=== PATIENT | female | born 1990 ===

== ENCOUNTER 2019-04-10 17:44 | Inpatient (IN) | payer OTHER ==
[2019-04-10] MEDS ORDERED: PITOCin/NS 20 UNIT/1000ML DRIP 20,000 MILLIUNITS/1,000 ML BAG IV ONE (19:07)
[2019-04-10] MEDS ORDERED: LACTATED RINGERS 1,000 ML ONE (19:07)
--- NOTE | 2019-04-10 19:23 | History and Physical Report ---
History of Present Illness Date of examination: 04/10/19 Date of admission: 04/10/19 Chief complaint: Active labor History of present illness: 28 yo, @ 39.1 weeks gestation, initiated care with [facility] at 29 wks. She was a transfer from [place] with no PNC. Her has been complicated by insufficient PNC and [place] non-immune status. She presents to [facility] with reports of regular painful ctxs for the past 2 hrs. She reports good FM. She denies any VB or LOF. Labs: O+, antibody negative; Hgb-13.1; Pap normal; rubella non-immune; VDRL negative; HBsAg negative; HIV negative GC/Chlamydia negative; 1 hr gtt - 117; GBS negative. Past History Past Medical History: other (Anemia, with hx of blood transfusion) Past Surgical History: no surgical history Family/Genetic History: none Social history: single, lives with family, full code. denies: smoking, alcohol abuse, prescription drug abuse, IV drug use - Obstetrical History Expected Date of Delivery: 04/16/19 Actual Gestation: 39 Week(s) 1 Day(s) : 7 Para: 4 Hx # Term Pregnancies: 4 Number of Pregnancies: 1 Spontaneous Abortions: 1 Induced : 0 Number of Living Children: 4 #1 Gender: Male year: 2,009 Method of Delivery: Vaginal Gestational age at delivery: 40 Complications: none #2 Infant Gender: Female year: 2,010 Method of Delivery: Vaginal Gestational age at delivery: 40 Complications: none #3 Infant Gender: Female year: 2,015 Method of Delivery: Vaginal Gestational age at delivery: 40 Complications: none #4 year: 2,016 Gestational age at delivery: 12 (D & C) #5 Infant Gender: Female year: 2,017 Method of Delivery: Vaginal Gestational age at delivery: 40 Complications: none #6 Infant Gender: Male year: 2,018 Method of Delivery: Vaginal Gestational age at delivery: 20 (IUFD) Complications: pelvic infection Review of Systems All systems: negative Genitourinary: contractions (regular painful) - Vital Signs Vital signs: Vital Signs Temp Pulse Resp BP 98.9 F 71 16 101/60 04/10/19 18:33 04/10/19 18:33 04/10/19 18:33 04/10/19 18:33 Temp Pulse Resp BP Pulse Ox 98.9 F 71 16 101/60 04/10/19 18:33 04/10/19 18:34 04/10/19 18:33 04/10/19 18:34 - Physical Exam Breasts: Positive: deferred Cardiovascular: Regular rate Lungs: Positive: Normal air movement Abdomen: Positive: other (gravid) Genitourinary (Female): Positive: normal external genitalia, normal perenium Uterus: Positive: enlarged (S=D) Extremities: Positive: normal Deep Tendon Reflex Grade: Normal +2 - Obstetrical FHR: category 1 Uterine Contraction Monitor Mode: External Cervical Dilatation: 6.5 Cervical Effacement Percentage: 90 station: -1 Uterine Contraction Frequency (min): 2 Uterine Contraction Pattern: Regular Uterine Tone Measurement Phase: Resting Uterine Contraction Intensity: Moderate Results All other labs normal. Assessment and Plan - Patient Problems (1) 39 weeks gestation of Current Visit: Yes Status: Acute (2) Active labor at term Current Visit: Yes Status: Acute Plan to address problem: Admit to L & D AROM @ 1908, clear fluids, tolerated well Expectant management Pain medications as desired Anticipate (3) Insufficient care in third trimester Current Visit: Yes Status: Acute
[2019-04-10] MEDS ORDERED: SUBLIMAZE IV PRN (19:37)
[2019-04-10] MEDS ORDERED: MINERAL OIL PO PRN (19:37)
[2019-04-10] MEDS ORDERED: BRETHINE SUB-Q PRN (19:37)
[2019-04-10] MEDS ORDERED: STADOL IV PRN (19:37)
[2019-04-10] MEDS ORDERED: ZOFRAN IV PRN ×2 (19:37→21:33)
[2019-04-10] MEDS ORDERED: XYLOCAINE 2% INFILTRATI ONE (19:37)
[2019-04-10 19:57] LABS: Hematocrit 40.9 % (30.3-42.9); Hemoglobin 13.7 gm/dl (10.1-14.3); Mean Corpuscular HGB Conc 34 % (30-34); Mean Corpuscular Volume 90 fl (79-97); Platelet Count 239 K/mm3 (140-440); Red Blood Count 4.57 M/mm3 (3.65-5.03); Red Cell Distribution Width 14.3 % (13.2-15.2)
[2019-04-10] MEDS ORDERED: PITOCin/NS 20 UNIT/1000ML DRIP 20 UNITS/1,000 ML BAG IV SCH (20:00)
[2019-04-10] MEDS ORDERED: LACTATED RINGERS 1,000 ML IV SCH (20:00)
[2019-04-10] MEDS ORDERED: TUCKS PAD TP PRN (21:33)
[2019-04-10] MEDS ORDERED: PHENERGAN PO PRN (21:33)
[2019-04-10] MEDS ORDERED: DULCOLAX PR PRN (21:33)
[2019-04-10] MEDS ORDERED: LANSINOH TP PRN (21:33)
[2019-04-10] MEDS ORDERED: PERCOCET 5/325 PO PRN (21:33)
[2019-04-10] MEDS ORDERED: MILK OF MAGNESIA PO PRN (21:33)
[2019-04-10] MEDS ORDERED: BENADRYL PO PRN (21:33)
--- NOTE | 2019-04-10 21:42 | Procedure Note ---
OB Delivery Note - Delivery Date of Delivery: 04/10/19 (2057) Surgeon: MICHAEL BOWLES (DINORAHM) Estimated blood loss: 300cc - Vaginal Delivery presentation: vertex Delivery position: OA (ISAÍAS) Intrapartum events: precipitous labor- <3hr Delivery induction: none Delivery augmentation: rupture of membranes Delivery monitor: external FHT, external uterine Route of delivery: Delivery placenta: spontaneous (2102) Delivery cord: 3 umbilical vessels Episiotomy: none Delivery laceration: 1st degree Delivery repair: vicryl (3.0 on SH) Anesthesia: none Delivery comments: of viable, crying male infant, placed directly to maternal abdomen. Cord double clamped and cut by friend after cessation of pulsation. Cord blood obtained per hospital policy. Placenta spontaneously delivered, [place], disposed per hospital policy. Uterus firm @ U-1. 1st degree laceration, repaired with 3.0 vicryl on SH. Mother and baby safe, stable and left in care of RN. - A at 1 minute: 8 at 5 minutes: 9 Infant Gender: Male (Weight: 3229 gms (7lbs 2 ozs) 21 inches)
[2019-04-10] MEDS ORDERED: SODIUM CHLORIDE FLUSH SYRINGE 10 ML IV PRN (22:00)
[2019-04-10] MEDS: IBUPROFEN PO SCH (22:02)
[2019-04-11] MEDS: IBUPROFEN PO SCH ×3 (03:27→17:59)
[2019-04-11] MEDS ORDERED: FEOSOL PO SCH (10:00)
--- NOTE | 2019-04-11 10:24 | Progress Note ---
Assessment and Plan A: PP Day #1 Stable P: Follow Routine Orders D/C Home today per patient request RTO in 6 Weeks Subjective - Subjective Date of service: 04/11/19 Patient reports: appetite normal, voiding normally, pain well controlled, fla tus, bowel movement, ambulating normally [place]: doing well Objective - Vital Signs Latest vital signs: Vital Signs Temp Pulse Resp BP BP Pulse Ox 04/11/19 08:03 98.5 F 69 18 93/59 04/11/19 05:43 98.2 F 76 18 101/61 98 04/10/19 23:00 98.2 F 60 18 113/72 98 04/10/19 21:58 67 115/73 04/10/19 21:43 73 107/63 04/10/19 21:34 78 108/63 04/10/19 21:13 67 113/62 04/10/19 19:15 98.9 F 18 04/10/19 18:34 71 101/60 04/10/19 18:33 98.9 F 71 16 101/60 Intake and Output 04/10/19 04/11/19 04/11/19 22:59 06:59 14:59 Intake Total 360 480 Balance 360 480 Intake: Oral 360 480 Other: Total, Intake Amount 120 480 # Voids Void 1 Weight 61.235 kg Estimated Blood Loss 300 - Exam Breasts: Present: normal Cardiovascular: Present: Regular rate Lungs: Present: Clear to auscultation, Normal air movement Abdomen: Present: normal appearance, soft, normal bowel sounds Uterus: Present: normal, firm, fundal height below umbilicus Extremities: Present: normal
--- NOTE | 2019-04-11 10:25 | Discharge Summary ---
Providers - Providers Date of Admission: 04/10/19 19:37 Date of discharge: 04/11/19 Attending physician: JOHN SPARKS MD Primary care physician: JOHN SPARKS MD Hospitalization Reason for admission: active labor Delivery: Episiotomy: none Laceration: 1st degree Other procedures: none complications: none Discharge diagnosis: IUP at term delivered [place] baby: male Condition at discharge: Good Disposition: DC-01 TO HOME OR SELFCARE Plan - Provider Discharge Summary Activity: routine, no sex for 6 weeks, no heavy lifting 4 weeks, no strenuous exercise Diet: routine Instructions: routine Additional instructions: [] Smoking cessation referral if applicable(refer to patient education folder for contact #) [] Refer to [facility] Booklet Call your doctor immediately for: * Fever > 100.5 * Heavy vaginal bleeding ( >1 pad per hour) * Severe persistent headache * Shortness of breath * Reddened, hot, painful area to leg or breast * Drainage or odor from incision. * Keep incision clean and dry at all times and follow doctor's instructions regarding bathing/showering - Follow up plan Follow up: JOHN SPARKS MD [Primary Care Provider] - 6 Weeks
[2019-04-11 11:59] LABS: Hematocrit 35.2 % (30.3-42.9); Hemoglobin 12.1 gm/dl (10.1-14.3)
[2019-04-11] MEDS ORDERED: DERMOPLAST TP PRN (13:18)
[2019-04-12] MEDS: IBUPROFEN PO SCH ×2 (00:33→06:46)
[2019-04-12] MEDS ORDERED: BOOSTRIX IM ONE (06:00)
[2019-04-12] MEDS ORDERED: M-M-R II VACCINE SUB-Q ONE (07:05)
[2019-04-12] MEDS ORDERED: AFLURIA QUAD 2019-2020 (3YR UP) IM ONE (12:00)
[2019-04-12 12:40] VITALS: BP 98/63
== END 2019-04-12 16:00 | disposition home or self-care (01) | DRG 807 ==
LOC: TRG 17:44 → LD 18:48 → TRG 19:37 → OB 23:16
PROVIDERS: ADMIT Obstetrics & Gynecology; ATTEND Obstetrics & Gynecology
PROC: 10E0XZZ Delivery of Products of Conception, External Approach (ICD-10-PCS; principal; 2019-04-10)
PROC: 10907ZC Drainage of Amniotic Fluid, Therapeutic from Products of Conception, Via Natural or Artificial Opening (ICD-10-PCS; 2019-04-10)
PROC: 0HQ9XZZ Repair Perineum Skin, External Approach (ICD-10-PCS; 2019-04-10)
PROC: 3E0234Z Introduction of Serum, Toxoid and Vaccine into Muscle, Percutaneous Approach (ICD-10-PCS; 2019-04-12)
DX: O62.3 Precipitate labor (principal); Z37.0 Single live birth; O70.0 First degree perineal laceration during delivery; Z3A.39 39 weeks gestation of pregnancy; Z23 Encounter for immunization
CPT/HCPCS: 36415; 85014; 85018; 85027; 86592; 86850; 86900; 86901; 90471; 90686; 90707; 90715; G0378; A6250; J2590; J7120

== ENCOUNTER 2020-11-11 06:01 | Inpatient (IN) | payer MEDICAID, OTHER ==
[2020-11-11] MEDS ORDERED: BETAMET ACET/BETAMET NA PH 6 MG/ML INJ 5 ML MDV IM ONE (07:02)
[2020-11-11] MEDS ORDERED: TERBUTALINE 1 MG/1 ML INJ SUB-Q PRN (07:17)
[2020-11-11] MEDS ORDERED: ePHEDrine SULFATE 50 MG/1 ML INJ IV PRN (07:17)
[2020-11-11] MEDS ORDERED: NalbUPHINE 10 MG/1 ML INJ IV PRN (07:17)
[2020-11-11] MEDS ORDERED: miSOPROStol 200 MCG TAB PR PRN (07:17)
[2020-11-11] MEDS ORDERED: PROMETHAZINE 25 MG TAB PO PRN ×2 (07:17→14:00)
[2020-11-11] MEDS ORDERED: LIDOCAINE (2%) 20 MG/1 ML VIAL 20 ML MDV INFILTRATI NR (07:17)
[2020-11-11] MEDS ORDERED: LACTATED RINGERS 1,000 ML IV SCH (07:30)
[2020-11-11] MEDS ORDERED: OXYTOCIN DRIP 30 UNITS/500 ML BAG IV SCH (08:00)
[2020-11-11] MEDS ORDERED: fentaNYL 100 MCG/2 ML INJ IV PRN (08:00)
[2020-11-11 08:15] LABS: Hematocrit 38.3 % (30.3-42.9); Hemoglobin 12.9 gm/dl (10.1-14.3); Mean Corpuscular HGB Conc 34 % (30-34); Mean Corpuscular Volume 83 fl (79-97); Platelet Count 265 K/mm3 (140-440); Red Blood Count 4.63 M/mm3 (3.65-5.03); Red Cell Distribution Width 17.5 % (13.2-15.2)
--- NOTE | 2020-11-11 08:20 | History and Physical Report ---
History of Present Illness Date of examination: 11/11/20 Chief complaint: leakage of fluid at 5am today History of present illness: at 37.5wks by LMP c/w 11wk u/sound from records. care from [facility]. Pt c/o LOF at 5am this morning. Pt also feels ctx since 1day ago, denies vag bleed or headache. Pt admits to movement. Past History Past Medical History: no pertinent history Past Surgical History: no surgical history Social history: no significant social history - Obstetrical History Expected Date of Delivery: 11/27/20 Actual Gestation: 37 Week(s) 5 Day(s) : 7 Spontaneous Abortions: 2 (IUFD at 20wks and SAB at 12wks) Number of Living Children: 5 Medications and Allergies Allergies Allergy/AdvReac Type Severity Reaction Status Date / Time No Known Allergies Allergy Unverified 04/10/19 19:15 Home Medications Medication Instructions Recorded Confirmed Last Taken Type Vit-Fe Fumar-FA [ 1 tab PO DAILY 04/10/19 04/10/19 1 Day Ago History Vitamin] ~04/09/19 Review of Systems All systems: negative (LOF and ctx) - Vital Signs Vital signs: Vital Signs Pulse BP 76 110/71 11/11/20 06:35 11/11/20 06:35 Temp Pulse Resp BP Pulse Ox 76 110/71 11/11/20 06:35 11/11/20 06:35 - Physical Exam Breasts: Positive: deferred Cardiovascular: Regular rate Lungs: Positive: Normal air movement Abdomen: Positive: soft Uterus: Positive: enlarged (non-tender) Extremities: Positive: normal - Obstetrical FHR: category 1 Uterine Contraction Monitor Mode: External Cervical Dilatation: 5.5 (per triage; No gross LOF seen) Cervical Effacement Percentage: 70 station: -2 Results All other labs normal. Assessment and Plan Grandmultiparous in labor, GBS neg. 1. Admit to labor and delivery 2. Pt declines epidural. May have IV pain med as desired 3. ROM plus sent to confirm leakage of fluid Discussed plan of care using job change crew member. Expect . All questions encouraged and answered
[2020-11-11] MEDS ORDERED: METHYLERGONOVINE MALEATE 0.2 MG/ML VIAL IM ONE ×2 (13:46→14:00)
[2020-11-11] MEDS ORDERED: diphenhydrAMINE 25 MG CAP PO PRN (14:00)
[2020-11-11] MEDS ORDERED: LANOLIN/ZINC/DIMETHICONE (LANSINOH) 7 GM TP PRN (14:00)
[2020-11-11] MEDS ORDERED: ONDANSETRON 4 MG/2 ML INJ IV PRN (14:00)
[2020-11-11] MEDS ORDERED: PROMETHAZINE 25 MG RECT SUPP PR PRN (14:00)
[2020-11-11] MEDS ORDERED: WITCH HAZEL/ GLYCERIN PAD TP PRN (14:00)
--- NOTE | 2020-11-11 14:01 | Procedure Note ---
OB Delivery Note - Delivery Date of Delivery: 11/11/20 Surgeon: KIARA ELIAS Estimated blood loss: 500cc - Vaginal Delivery presentation: vertex Delivery position: OA Intrapartum events: hemorrhage, shoulder dystocia Delivery induction: none Delivery augmentation: rupture of membranes, pitocin Delivery monitor: external FHT, external uterine Route of delivery: Delivery placenta: spontaneous Delivery cord: nuchal cord, 3 umbilical vessels Episiotomy: none Delivery laceration: none Anesthesia: none Delivery comments: Called to for delivery. SVE 10/100/0 and pt was pushing. of a live stunned male infant. Tight nuchal cord was reduced over infant's head after delivery of head. Unable to deliver 's shoulders after normal axial traction was applied. A shoulder dystocia was called. Pt was placed in McRobert's position and suprapubic pressure was applied. was delivered after 3 min use of Hartley screw maneuver and delivery of posterior arm. Much room was noted in pelvis. Pt had poor maternal pushing efforts secondary to pain. Cord was clamped x 2 and cut. was given to awaiting NICU nurse for an asses. 8/9. FF@ U2 with fundal massage and IV Pitocin. Homeostasis was maintained with use of Cytotec 800 mcg MD and Methergine 0.2 mg IM due to trickling of blood and grand multiparity. An exploration of tears revealed none. EBL 500cc. FW 4020Gms. Mom and baby was left in stable condition with L&D nurse. - Infant A at 1 minute: 8 at 5 minutes: 9 (FW 4020 Gms) Gender: Male
[2020-11-11] MEDS: IBUPROFEN 600 MG TAB PO SCH ×2 (14:03→21:15)
[2020-11-11] MEDS ORDERED: MINERAL OIL 30 ML ORAL LIQD PO PRN (22:00)
[2020-11-11] MEDS ORDERED: MAGNESIUM HYDROXIDE (MOM) ORAL LIQD UDC PO PRN (22:00)
[2020-11-12 00:51] LABS: Hematocrit 33.8 % (30.3-42.9); Hemoglobin 11.4 gm/dl (10.1-14.3)
[2020-11-12] MEDS: IBUPROFEN 600 MG TAB PO SCH ×3 (04:29→16:32)
[2020-11-12] MEDS ORDERED: medroxyPROGESTERone ACETATE 150 MG/ML SYRINGE IM NR (11:58)
--- NOTE | 2020-11-12 12:04 | Progress Note ---
Assessment and Plan A: PP Day #1 Vaginal edema P: Follow Routine Orders D/C Mensah Encourage increased ambulation Patient Request D/C Home today If adequate voiding after Mensah removed, October D/C home today Depo Provera 150mg IM x 1 dose prior to discharge RTO in 6 Weeks Subjective - Subjective Date of service: 11/12/20 Principal diagnosis: IUP@ 37.5 wks Patient reports: appetite normal, voiding normally (Mensah in place due to labial edema; adquate urine output), pain well controlled, flatus, ambulating normally : doing well, bottle feeding Objective - Vital Signs Latest vital signs: Vital Signs Temp Pulse Resp BP BP Pulse Ox 11/12/20 07:56 97.8 F 66 14 91/53 98 11/12/20 05:29 18 11/12/20 04:29 18 11/12/20 01:06 98.8 F 55 L 20 96/53 99 11/11/20 22:15 18 11/11/20 21:15 18 11/11/20 18:22 99.1 F 55 L 18 112/66 98 11/11/20 16:25 98.4 F 60 17 115/65 99 11/11/20 15:45 57 L 130/71 11/11/20 15:30 58 L 128/72 11/11/20 15:15 58 L 128/73 11/11/20 15:00 57 L 120/65 11/11/20 14:45 59 L 123/69 11/11/20 14:30 55 L 120/62 11/11/20 14:15 59 L 105/58 11/11/20 14:00 64 109/71 11/11/20 13:45 105/67 11/11/20 13:35 58 L 107/64 11/11/20 13:30 62 106/64 Intake and Output 11/11/20 11/12/20 11/12/20 22:59 06:59 14:59 Intake Total 120 Output Total 375 300 Balance -375 -180 Intake: Oral 120 Output: Urine 375 300 Indwelling Catheter 375 300 Other: Total, Intake Amount 120 Total, Output Amount 375 300 - Exam Breasts: Present: normal Cardiovascular: Present: Regular rate Lungs: Present: Clear to auscultation, Normal air movement Abdomen: Present: normal appearance, soft, normal bowel sounds Uterus: Present: normal, firm, fundal height below umbilicus Extremities: Present: normal
--- NOTE | 2020-11-12 12:05 | Discharge Summary ---
Providers - Providers Date of Admission: 11/11/20 06:02 Date of discharge: 11/13/20 Attending physician: RADHA COLLAZO Primary care physician: RADHA COLLAZO Hospitalization Reason for admission: active labor, rupture of membranes Delivery: Episiotomy: none Laceration: none Other procedures: none complications: other (labial edema) Discharge diagnosis: IUP at term delivered baby: male Condition at discharge: Good Disposition: DC-01 TO HOME OR SELFCARE Plan - Provider Discharge Summary Activity: routine, no sex for 6 weeks, no heavy lifting 4 weeks, no strenuous exercise Diet: routine Instructions: routine Additional instructions: [] Smoking cessation referral if applicable(refer to patient education folder for contact #) [] Refer to [facility] Booklet Call your doctor immediately for: * Fever > 100.5 * Heavy vaginal bleeding ( >1 pad per hour) * Severe persistent headache * Shortness of breath * Reddened, hot, painful area to leg or breast * Drainage or odor from incision. * Keep incision clean and dry at all times and follow doctor's instructions regarding bathing/showering - Follow up plan Follow up: RADHA COLLAZO MD [Primary Care Provider] - 6 Weeks
[2020-11-12 21:48] VITALS: BP 106/70
== END 2020-11-12 22:10 | disposition home or self-care (01) | DRG 806 ==
LOC: TRG 06:01 → APU 06:02 → LD 06:02 → APU 06:14 → TRG 08:28 → OB 16:42
PROVIDERS: ADMIT Obstetrics & Gynecology; ATTEND Obstetrics & Gynecology
PROC: 10E0XZZ Delivery of Products of Conception, External Approach (ICD-10-PCS; principal; 2020-11-11)
DX: O66.0 Obstructed labor due to shoulder dystocia (principal); O72.1 Other immediate postpartum hemorrhage; Z37.0 Single live birth; O69.1XX0 Labor and delivery complicated by cord around neck, with compression, not applicable or unspecified; Z20.822 Contact with and (suspected) exposure to COVID-19; Z3A.37 37 weeks gestation of pregnancy
CPT/HCPCS: 36415; 84112; 85014; 85018; 85027; 86850; 86900; 86901; G0378; J2210; J2590; U0003

== ENCOUNTER 2021-10-26 14:55 | Outpatient (CLI) | payer MEDICAID, OTHER ==
[2021-10-26 15:37] VITALS: BP 135/61
[2021-10-26] MEDS ORDERED: LACTATED RINGERS 500 ML IV ONE (16:07)
== END 2021-10-26 16:18 | disposition home or self-care (01) ==
LOC: TRG 14:55 → APU 14:57 → TRG 16:18
PROVIDERS: ATTEND Obstetrics & Gynecology
DX: Z34.93 Encounter for supervision of normal pregnancy, unspecified, third trimester (principal); Z3A.28 28 weeks gestation of pregnancy
CPT/HCPCS: 59025

== ENCOUNTER 2021-10-26 16:34 | Emergency (ER) | payer SELFPAY ==
[2021-10-26] MEDS ORDERED: predniSONE 20 MG TAB PO ONE (17:41)
[2021-10-26] MEDS ORDERED: FAMOTIDINE 20 MG TAB PO ONE (17:41)
--- NOTE | 2021-10-26 17:45 | Emergency Department Report ---
ED Rash HPI - HPI Stated Complaint: RASH ON LEG Time Seen by Provider: 10/26/21 17:40 Duration: 1 Day Location: Other Suspected Cause: Medication Rash Symptoms: Yes Itching, No Facial Swelling, No Tongue/Oral Swelling, No Breathing Difficulties, No Choking Sensation, No Wheezing/Dyspnea, No Peeling, No Blistering, No Fever, No Lightheaded, No Malaise, No Myalgias Severity: mild Other History: Patient is a 32-year-old female that comes to the emergency room after being cleared by women's health, due to her . She initially came to the ER this morning with complaints of a rash and intermittent abdominal pain. She speaks minimal Nepalese. She is cleared by PROGRAM PROJECT MANAGER. She now comes to the ER with a rash. She recently started Macrobid. She took some [id number] Benadryl. But she continues to complain of itching. She has a generalized urticarial rash. No one in the home has a rash. ABCs are intact. She is taking p.o. She is ambulatory without shortness of breath. No hypotension, tachycardia or hypoxia. ED Review of Systems ROS: Stated complaint: RASH ON LEG Other details as noted in HPI Comment: All other systems reviewed and negative ED Past Medical Hx - Past Medical History Previous Medical History?: No Hx Hypertension: No Hx Diabetes: No Hx Deep Vein Thrombosis: No Hx Renal Disease: No Hx Sickle Cell Disease: No Hx Seizures: No Hx Asthma: No Hx HIV: No - Surgical History Past Surgical History?: No - Family History Family history: no significant - Social History Smoking Status: Never Smoker - Medications Home Medications: Home Medications Medication Instructions Recorded Confirmed Last Taken Type Vit-Fe Fumar-FA [ 1 tab PO DAILY 04/10/19 11/11/20 11/10/20 History Vitamin] methylPREDNISolone [Medrol 4MG 4 mg PO FS #1 tab.ds.pk 10/26/21 Unknown Rx DOSEPAK (21 tabs)] Rash Exam - Exam General: Vital signs noted. No distress. Alert and acting appropriately. HEENT: No Periorbital Edema, No Conjuctival Injection, No Chemosis, No Perioral Edema, No Tongue Edema, No Uvular Edema, No Compromised Airway, No Drooling Lungs: Yes Good Air Exchange (Normal Breath Sounds), No Wheezes, No Ronchi, No Stridor, No Cough, No Labored Respirations, No Retractions, No Use of Accessory Muscles, No Other Abnormal Lung Sounds Heart: Yes Regular, No Murmur Skin: Yes Urticarial Rash Other: Positive: Abdomen Normal, Neurologic Normal, Musculoskeletal Normal ED Medical Decision Making - Medical Decision Making Patient is under the care of her PROGRAM PROJECT MANAGER for her and UTI. I had started her on Macrobid. She comes in today with a urticarial rash. [facility] and cleared from a DRILL RUNNER/OB perspective: Was sent here for her rash. Patient speaks minimal Nepalese. Her significant other also speaks minimal Nepalese. She denies vaginal bleeding or discharge. Denies abdominal pain. She did not tell the PROGRAM PROJECT MANAGER that was seen today about her Macrobid. I told her to stop the Macrobid. I have given her prednisone and Pepcid here in the ER. She is already taking Benadryl. ABCs are intact. Vital signs are stable. Patient is in no acute distress. Patient taking p.o. Patient being discharged home with discharge plan of care. She understands she needs to follow-up with her PCP and her PROGRAM PROJECT MANAGER in 48 hours. Vital signs normal as documented manually by the RN - Differential Diagnosis Rash Critical care attestation.: If time is entered above; I have spent that time in minutes in the direct care of this critically ill patient, excluding procedure time. ED Disposition Clinical Impression: Allergic reaction Qualifiers: Encounter type: initial encounter Qualified Code(s): T78.40XA - Allergy, unspecified, initial encounter Disposition: 01 HOME / SELF CARE / HOMELESS Is pt being admited?: No Does the pt Need Aspirin: No Condition: Stable Instructions: Allergies, Adult, [id number]-nr-Ulgr Additional Instructions: Continue to take Benadryl for itching Do not take the Macrobid Follow-up with OB and PCP in 48 hours for recheck I have given you referral below Make sure your PROGRAM PROJECT MANAGER rechecks her urine given your recent UTI Medication as ordered today You should report Macrobid as an allergy from now 1 Prescriptions: methylPREDNISolone [Medrol 4MG DOSEPAK (21 tabs)] 4 mg PO FS #1 tab.ds.pk Referrals: RAMESH PILLAI MD [Staff Physician] - 3-5 Days Time of Disposition: 17:44 Print Language: JAPANESE
== END 2021-10-26 18:20 | disposition home or self-care (01) ==
LOC: ED 16:34
DX: O99.719 Diseases of the skin and subcutaneous tissue complicating pregnancy, unspecified trimester (principal); Z3A.00 Weeks of gestation of pregnancy not specified; T78.40XA Allergy, unspecified, initial encounter
CPT/HCPCS: 99282

== ENCOUNTER 2022-01-23 10:40 | Inpatient (IN) | payer SELFPAY ==
[2022-01-23] MEDS ORDERED: fentaNYL 100 MCG/2 ML INJ IV PRN (12:36)
[2022-01-23] MEDS ORDERED: LIDOCAINE (2%) 20 MG/1 ML VIAL 20 ML MDV INFILTRATI ONE (12:36)
[2022-01-23] MEDS ORDERED: miSOPROStol 200 MCG TAB PR PRN (12:36)
[2022-01-23] MEDS ORDERED: ePHEDrine SULFATE 50 MG/1 ML INJ IV PRN (12:36)
[2022-01-23] MEDS ORDERED: LOPERAMIDE 2 MG CAP PO PRN (12:36)
[2022-01-23] MEDS ORDERED: TERBUTALINE 1 MG/1 ML INJ SUB-Q PRN (12:36)
[2022-01-23] MEDS ORDERED: MINERAL OIL 30 ML ORAL LIQD PO PRN (12:36)
[2022-01-23] MEDS ORDERED: OXYTOCIN 10 UNIT/1 ML INJ IM PRN (12:36)
[2022-01-23] MEDS ORDERED: BUTORPHANOL 2 MG/1 ML INJ IV PRN ×2 (12:36)
[2022-01-23] MEDS ORDERED: ACETAMINOPHEN 325 MG TAB PO PRN (12:36)
[2022-01-23] MEDS ORDERED: CARBOPROST TROMETHAMINE 250 MCG/1 ML INJ IM PRN (12:36)
[2022-01-23] MEDS ORDERED: METHYLERGONOVINE MALEATE 0.2 MG/ML VIAL IM PRN (12:36)
[2022-01-23] MEDS ORDERED: OXYTOCIN DRIP 30 UNITS/500 ML BAG IV SCH ×2 (13:00)
[2022-01-23 15:32] LABS: Hematocrit 34.1 % (30.3-42.9); Hemoglobin 10.6 gm/dl (10.1-14.3); Mean Corpuscular HGB Conc 31 % (30-34); Mean Corpuscular Volume 72 fl (79-97); Platelet Count 270 K/mm3 (140-440); Red Blood Count 4.72 M/mm3 (3.65-5.03); Red Cell Distribution Width 16.4 % (13.2-15.2)
--- NOTE | 2022-01-23 20:17 | History and Physical Report ---
History of Present Illness Date of examination: 01/23/22 Date of admission: 01/23/22 12:49 Chief complaint: ctx History of present illness: at 37+wks by LMP c/w U/S. at [facility] covered by [employer] at this hospital. Pt last seen in the first week of December 2021 per clinic provider who sent the records. Pt c/o ctx, denies LOF or vag bleed, c/o headache and feeling hungry, admits to movement. labs with Rh positive, neg screen, HIV, RPR and HepBsAg all neg and rubella immune. No record of GBS because pt did not return for this test. Past History Past Medical History: other (From records pt had previa in this preg that resolved in November but no u/s report; also previous IUFD at 20wks with sepsis in 07/2021) Past Surgical History: D&C (in 2015) Social history: no significant social history - Obstetrical History Expected Date of Delivery: 02/08/22 Actual Gestation: 37 Week(s) 5 Day(s) : 9 Hx # Term Pregnancies: 6 Number of Pregnancies: 1 (IUFD at 20wks with sepsis) Spontaneous Abortions: 1 Number of Living Children: 6 Medications and Allergies Allergies Allergy/AdvReac Type Severity Reaction Status Date / Time nitrofurantoin Allergy Itching Verified 01/23/22 19:18 [From Macrobid] Home Medications Medication Instructions Recorded Confirmed Last Taken Type Vit-Fe Fumar-FA [ 1 tab PO DAILY 04/10/19 11/11/20 11/10/20 History Vitamin] methylPREDNISolone [Medrol 4MG 4 mg PO FS #1 tab.ds.pk 10/26/21 Unknown Rx DOSEPAK (21 tabs)] Active Meds: Active Medications Acetaminophen (Acetaminophen 325 Mg Tab) 650 mg PO Q4H PRN PRN Reason: Pain, Mild (1-3) Last Admin: 01/23/22 19:37 Dose: 650 mg Butorphanol Tartrate (Butorphanol 2 Mg/1 Ml Inj) 1 mg IV Q2H PRN PRN Reason: Pain, Moderate(4-6) LABOR PAIN Butorphanol Tartrate (Butorphanol 2 Mg/1 Ml Inj) 2 mg IV Q2H PRN PRN Reason: Pain , Severe (7-10) Carboprost Tromethamine (Carboprost Tromethamine 250 Mcg/1 Ml Inj) 250 mcg IM ONCE PRN PRN Reason: Uterine Bleeding Ephedrine Sulfate (Ephedrine Sulfate 50 Mg/1 Ml Inj) 10 mg IV Q2M PRN PRN Reason: Hypotension Fentanyl (Fentanyl 100 Mcg/2 Ml Inj) 100 mcg IV Q2H PRN PRN Reason: Pain,Severe (7-10) LABOR PAIN Oxytocin/Sodium Chloride (Pitocin/Ns 30 Unit/500ml) 30 units in 500 mls @ 2 mls/hr IV TITR JEAN; Protocol Lactated Ringer's (Lactated Ringers) 1,000 mls @ 125 mls/hr IV DIRECT JEAN Oxytocin/Sodium Chloride (Pitocin/Ns 30 Unit/500ml) 30 units in 500 mls @ 40 mls/hr IV TITR JEAN; Protocol Loperamide HCl (Loperamide 2 Mg Cap) 2 mg PO ONCE PRN PRN Reason: give with Hemabate Methylergonovine Maleate (Methylergonovine Maleate 0.2 Mg/Ml Vial) 0.2 mg IM ONCE PRN PRN Reason: Uterine Bleeding Mineral Oil (Mineral Oil 30 Ml Oral Liqd) 30 ml PO QHS PRN PRN Reason: Constipation Misoprostol (Misoprostol 200 Mcg Tab) 800 mcg AK ONCE PRN PRN Reason: Uterine Bleeding Oxytocin (Oxytocin 10 Unit/1 Ml Inj) 10 unit IM ONCE PRN PRN Reason: Uterine Bleeding Terbutaline Sulfate (Terbutaline 1 Mg/1 Ml Inj) 0.25 mg SUB-Q ONCE PRN PRN Reason: Hyperstimulation/Hypertonicity Review of Systems All systems: negative (vag spotting and ctx) - Vital Signs Vital signs: Vital Signs Pulse Pulse Ox 78 99 01/23/22 11:07 01/23/22 11:07 Temp Pulse Resp BP Pulse Ox 99.3 F 95 H 18 124/66 98 01/23/22 19:42 01/23/22 20:06 01/23/22 19:42 01/23/22 19:44 01/23/22 20:06 - Physical Exam Breasts: Positive: deferred Cardiovascular: Regular rate Lungs: Positive: Normal air movement Abdomen: Positive: soft Genitourinary (Female): Positive: normal external genitalia Vagina: Positive: normal moisture Uterus: Positive: enlarged (non-tender gravid) - Obstetrical FHR: category 1 Uterine Contraction Monitor Mode: External Cervical Dilatation: 4 (per triage nurse) Uterine Contraction Pattern: Irregular Uterine Contraction Intensity: Mild Results Result Diagrams: 01/23/22 15:17 Abnormal lab results 01/23/22 Range/Units 15:17 MCV 72 L (79-97) fl MCH 22 L (28-32) pg RDW 16.4 H (13.2-15.2) % All other labs normal. Assessment and Plan Term IUP at 37.5wk, unknown GBS with history of IUFD with sepsis earlier this year 07/2021 currently with normal wbc and reassuring FHR on monitor. Records a lso with placenta previa this preg that has resolved but no actual copy of the u/s record and pt with chief complaint of vag bleed today 1. Admit to labor and delivery 2. Confirm that placenta previa has resolved 3. May have IV pain med or epidural when desired. 4. If no previa, will proceed with vaginal delivery 5. Will need 2nd access since this is pt's 9th preg and high risk of PPH All questions encouraged and answered
[2022-01-23] MEDS: LACTATED RINGERS 1,000 ML IV SCH (21:11)
[2022-01-23] MEDS ORDERED: SODIUM CHLORIDE 0.9% 500 ML 500 ML IV ONE (23:33)
[2022-01-23] MEDS ORDERED: FAMOTIDINE 20 MG/2 ML INJ IV ONE (23:36)
[2022-01-23] MEDS ORDERED: METOCLOPRAMIDE 10 MG/2 ML INJ ONE (23:36)
[2022-01-23] MEDS ORDERED: BICITRA ORAL LIQD 30ML ONE (23:36)
--- NOTE | 2022-01-23 23:39 | Ultrasound Report ---
ULTRASOUND OBSTETRIC LIMITED INDICATION / CLINICAL INFORMATION: rule out placenta previa. COMPARISON: None available. FINDINGS: A single live intrauterine is seen in cephalic presentation with a heart rate of 135 bpm. C omplete placenta previa is noted. No other significant abnormality. IMPRESSION: Complete placenta previa without other significant sonographic abnormalities of the pelvis. Signer Name: Samy Mckeon MD Signed: 01/23/2022 11:35 PM Workstation Name: [id number]
--- NOTE | 2022-01-23 23:56 | Event Note ---
Date: 01/23/22 pt had repeat u/s here on the floor at [facility] that states complete placenta previa with less than 4cm of fluid. Consents obtained for pt to have primary section for complete previa, risks of hemorrhage discussed with possible hysterectomy and pt signed consents. Pt and partner present state they have been having sex 2-3times per week and today was the first time pt had vag bleed that was bright red blood and large amount. Pt currently with dark mucus moderate amount. Will proceed to have primary c/section, 4units PRBC ordered and same available and cell saver also contacted with asst available. Outboard Motorboat Rigger used to explain everything to pt. All questions encouraged and answered.
[2022-01-24] MEDS: LACTATED RINGERS 1,000 ML IV SCH ×2 (00:09→06:43)
[2022-01-24] MEDS ORDERED: METOCLOPRAMIDE 10 MG/2 ML INJ IV ONE (00:11)
[2022-01-24] MEDS ORDERED: FAMOTIDINE 20 MG/2 ML INJ IV ONE (00:11)
[2022-01-24] MEDS ORDERED: BICITRA ORAL LIQD 30ML PO ONE (00:11)
[2022-01-24] MEDS ORDERED: LACTATED RINGERS 1,000 ML IV SCH (00:15)
[2022-01-24] MEDS ORDERED: SODIUM CHLORIDE 0.9% 100 ML ONE (00:38)
[2022-01-24] MEDS ORDERED: ePHEDrine SULFATE 50 MG/1 ML INJ ONE (00:38)
[2022-01-24] MEDS ORDERED: PHENYLEPHRINE/NS 1,000 MCG/10 ML SYRINGE (OR USE) IV ONE ×2 (00:38→01:52)
[2022-01-24] MEDS ORDERED: BUPIVACAINE/PF (0.25%) 2.5 MG/ML 30 ML VIAL INFILTRATI ONE (00:38)
[2022-01-24] MEDS ORDERED: ONDANSETRON 4 MG/2 ML INJ ONE (00:38)
[2022-01-24] MEDS ORDERED: SODIUM CHLORIDE 0.9% 1000 ML 1,000 ML ONE (00:58)
[2022-01-24] MEDS ORDERED: SODIUM CHLORIDE 0.9% IRR 1,500 ML BOTTLE IR ONE (01:00)
[2022-01-24] MEDS ORDERED: WATER FOR IRRIG STERILE 1,500 ML BOTTLE IR ONE (01:00)
[2022-01-24] MEDS ORDERED: OXYTOCIN DRIP 30 UNITS/500 ML BAG IV SCH (01:00)
[2022-01-24] MEDS ORDERED: ceFAZolin/Water 2 GM/20 ML 2 GM/20 ML SYRINGE IV NR (01:00)
[2022-01-24] MEDS ORDERED: NALOXONE 0.4 MG/1 ML INJ IV PRN ×2 (03:03→04:29)
[2022-01-24] MEDS ORDERED: PROMETHAZINE 25 MG TAB PO PRN (03:03)
[2022-01-24] MEDS ORDERED: PROMETHAZINE 25 MG RECT SUPP PR PRN (03:03)
[2022-01-24] MEDS ORDERED: ONDANSETRON 4 MG/2 ML INJ IV PRN ×2 (03:03→04:29)
[2022-01-24] MEDS ORDERED: MORPHINE 4 MG/1 ML INJ IV PRN (03:03)
[2022-01-24] MEDS ORDERED: HYDROmorphone 1 MG/1 ML INJ IV PRN ×2 (03:03)
--- NOTE | 2022-01-24 03:06 | Anesthesia Consultation ---
Anesthesia Consult and Med Hx Date of service: 01/24/22 - Airway Anesthetic Teeth Evaluation: Good ROM Head & Neck: Adequate Mental/Hyoid Distance: Adequate Mallampati Class: Class II Intubation Access Assessment: Probably Good - Pulmonary Exam CTA: Yes - Cardiac Exam Cardiac Exam: RRR - Pre-Operative Health Status ASA Pre-Surgery Classification: ASA2 Proposed Anesthetic Plan: Spinal Nerve Block: Momo Tap - Pulmonary Hx Smoking: No Hx Asthma: No Hx Respiratory Symptoms: No SOB: No COPD: No Home Oxygen Therapy: No Hx Pneumonia: No Hx Sleep Apnea: No - Cardiovascular System Hx Hypertension: No Hx Coronary Artery Disease: No Hx Heart Attack/AMI: No Hx Angina: No Hx Percutaneous Transluminal Coronary Angioplasty (PTCA): No Hx Cardia Arrhythmia: No Hx Pacemaker: No Hx Internal Defibrillator: No Hx Valvular Heart Disease: No Hx Heart Murmur: No Hx Peripheral Vascular Disease: No - Central Nervous System Hx Neuromuscular Disorder: No Hx Seizures: No CVA: No Hx Back Pain: No Hx Psychiatric Problems: No - Gastrointestinal Hx Ulcer: No Hx Gastroesophageal Reflux Disease: No - Endocrine Hx Renal Disease: No Hx End Stage Renal Disease: No Hx Cirrhosis: No Hx Liver Disease: No Hx Insulin Dependent Diabetes: No Hx Non-Insulin Dependent Diabetes: No Hx Thyroid Disease: No Hx Hypothyroidism: No Hx Hyperthyroidism: No - Hematic Hx Anemia: No Hx Sickle Cell Disease: No - Other Systems Hx Alcohol Use: No Hx Substance Use: No Hx Cancer: No Hx Obesity: No
--- NOTE | 2022-01-24 03:07 | Progress Note ---
Spinal Anesthesia Block - Spinal Anesthesia Block Start Time: 00:28 Stop Time: 00:34 Performed by:: ZACHARIAH ROMERO Procedure: The patient was placed in a sitting position on the OR table and monitors applied. A timeout was performed immediately prior to the start of the procedure. The patient was Prepped and draped in a sterile fashion and the skin was localized with 3 mL 1% lidocaine at L[4]-L[5] interspace. An introducer was placed into the back between L4-L5 and a 25g spinal needle was advanced into the intrathecal space until clear, free flowing CSF was observed. 1.8cc of 0.75% hyperbaric bupivacaine + 0.5mcg Precedex was injected into the intrathecal space and the spinal needle was removed. The patient tolerated the procedure well and there were no immediate complications noted.
--- NOTE | 2022-01-24 03:07 | Anesthesia Day of Surgery ---
Anesthesia Day of Surgery - Day of Surgery Patient Examined: Yes Patient H&P Reviewed: Yes Patient is NPO: Yes Beta Blockers: No Cardiac Clearance: No Pulmonary Clearance: No Ziggy's Test: N/A
--- NOTE | 2022-01-24 03:08 | Progress Note ---
Regional Anesthesia Block - Regional Anesthesia Block Start Time: :44 Stop Time: :50 Performed By:: ZACHARIAH ROMERO Procedure: During the pre-op interview the patient agreed to and signed a consent for a TAP block for post surgical pain management. After her C/S was completed a time out was performed prior to the start of the procedure. The Trans Abdominal Plane was identified bilaterally via ultrasound. The skin was prepped bilaterally with chlorhexidine and a 22g stimuplex needle was advanced to the area between the internal oblique muscle and the trans abdominal plane. Marcaine 0.25% 30mlwas injected under ultrasound guidance on the left and right side. Negative aspiration every 5mL, There was no change in the patients heart rate or rhythm and the patient tolerated the procedure well. No apparent complications were observed.
--- NOTE | 2022-01-24 03:20 | Procedure Note ---
OB Delivery Note - Delivery Date of Delivery: 01/24/22 Surgeon: ALEXANDRA COLLAZO Estimated blood loss: other (725cc per QBL) - Section Preop diagnosis: other (complete previa, vaginal bleeding, term IUP a 37.4wks) Postop diagnosis: same (and partial abruption with moderate size clot anteriorly) section procedure: primary low transverse Disposition: floor Complications: none Narrative: Date: 01/24/22 Surgeon: Alexandra Collazo MD Preop Dx: IUP at 37.4wks, complete previa, active vaginal bleeding with moderate amount dark color blood Postop Dx: same and partial abruption Procedure : Primary Low Transverse Section Anesthesia: Spinal Intake: 1500cc Output: 250cc EBL: 725cc per QBL After the risks, benefits and alternatives of procedure discussed, patient signed consents and was taken to the operating room. Pt was given spinal anesthesia. After same was adequate, patient was prepped and draped in the usual sterile fashion. Mensah catheter in place and draining clear urine. Pt was given prophylactic antibiotic per protocol and time out was done Pfannenstiel skin incision was made and taken sharply to the fascia and the incision extended using electrocautery. Superior edge of the fascia was grasped with johanny clamps and the rectus muscle using blunt dissection and also using electrocautery. Lower portion of the fascia also using electrocautery. Rectus muscle in the midline and Peritoneal cavity entered bluntly and extended with good visualization of the bladder. Alberto retractor placed. The bladder flap was created sharply using metzenbaum scissors. Lower uterine segment then entered transversely and amniotic sac entered using allys clamps and moderate size dark clot noted. Uterine incision extended using bandage scissors. Infant delivered, bulb suctioned, cord clamped and baby handed to waiting pediatricians. Placenta previa noted with partial separation extending posteriorly; same delivered completely and uterine cavity cleared of all clots and debri. The uterus was exteriorized and closed in 2 layers using 0-monocryl suture in a running locked fashion; My bindery library technical assistant had to leave during this case while the additional layer of imbrication suture was being placed and the remainder of this case was done by me alone. Surgicel powder placed and bladder flap closed iwth 3-0 monocryl. Excellent hemostasis noted. The uterus was returned to the abdomen. The gutters were cleared of clots and debri and anterior peritoneum closed using 3-0 vicryl suture in a running fashion and rectus muscle reapproximated using 0-vicryl suture. Rectus fascia closed with 0-vicryl suture in a continuous fashion and subcuta neous tissue copiously irrigated with normal saline and re-approximated using 3- 0 vicryl suture in a subcutaneous fashion. Excellent hemostasis remains. The skin was closed with 4-0 monocryl suture subcutaneously and steristrips placed with pressure dressing. The bindery library technical assistant returned and did the count and Sponge, lap, instrument and needle counts x2 were normal. Patient tolerated the procedure well and was taken to recovery room stable. Cell saver was present for the case however only 200cc blood accumulated. Pt given cytotec 1000mcg per rectum for prophylaxis with abruption, previa and gra nd multiparity Findings: Viable male , APGARS 9/9 and weight 3760g. Boggy Normal apprearing uterus with complete previa and same started to separate with moderate size dark clot, normal tubes and ovaries bilaterally.
[2022-01-24] MEDS ORDERED: fentaNYL-BUPIV 2 MCG/ML-0.125% 200 MCG/100 ML BAG EPIDURAL SCH (04:00)
[2022-01-24] MEDS ORDERED: IBUPROFEN 600 MG TAB PO PRN (04:29)
[2022-01-24] MEDS ORDERED: MAGNESIUM HYDROXIDE (MOM) ORAL LIQD UDC PO PRN (04:29)
[2022-01-24] MEDS ORDERED: LANOLIN/ZINC/DIMETHICONE (LANSINOH) 7 GM TP PRN (04:29)
[2022-01-24] MEDS ORDERED: SENNOSIDES 8.6 MG TAB PO PRN (04:29)
[2022-01-24] MEDS ORDERED: WITCH HAZEL/ GLYCERIN PAD TP PRN (04:29)
[2022-01-24] MEDS: MORPHINE 4 MG/1 ML INJ IV PRN ×3 (05:03→13:45)
--- NOTE | 2022-01-24 06:56 | Event Note ---
Date: 01/24/22 pt evaluated on and she needs better control of pain in spite of tap block, nurse aware. Abd soft, Dressing C/D/I and vag bleed small and dark red. Will continue present mgt with IV hydration and hillman to gravity
[2022-01-24] MEDS ORDERED: miSOPROStol 200 MCG TAB PR ONE (08:00)
[2022-01-24] MEDS: IBUPROFEN 800 MG TAB PO PRN ×3 (08:26→23:12)
[2022-01-24] MEDS: FERROUS SULFATE 325 MG TAB PO SCH (10:01)
[2022-01-24] MEDS: SIMETHICONE 80 MG CHEW TAB PO PRN ×2 (10:07→15:47)
[2022-01-24] MEDS: PRENATAL VIT27-FE FUMARATE-FOLIC ACID VIT TAB PO SCH (10:12)
[2022-01-24] MEDS: oxyCODONE /ACETAMINOPHEN 5-325MG TAB PO PRN (20:17)
[2022-01-25] MEDS: oxyCODONE /ACETAMINOPHEN 5-325MG TAB PO PRN ×3 (02:57→18:36)
[2022-01-25 05:11] LABS: Basophils % (Auto) 0.3 % (0.0-1.8); Eosinophils # (Auto) 0.1 K/mm3 (0.0-0.4); Eosinophils % (Auto) 1.5 % (0.0-4.3); Hematocrit 24.4 % (30.3-42.9); Hemoglobin 7.7 gm/dl (10.1-14.3); Lymphocytes # (Auto) 2.6 K/mm3 (1.2-5.4); Lymphocytes % (Auto) 32.3 % (13.4-35.0); Mean Corpuscular HGB Conc 32 % (30-34); Mean Corpuscular Volume 71 fl (79-97); Monocytes # (Auto) 0.6 K/mm3 (0.0-0.8); Monocytes % (Auto) 7.3 % (0.0-7.3); Platelet Count 226 K/mm3 (140-440); Red Blood Count 3.42 M/mm3 (3.65-5.03); Red Cell Distribution Width 16.5 % (13.2-15.2)
--- NOTE | 2022-01-25 08:46 | Post Anesthesia Evaluation ---
- Post Anesthesia Evaluation Patient Participated: Yes Airway Patent: Yes Stable Respiratory Function: Yes Nausea/Vomiting: No Temp > 96.8F: Yes Pain Manageable: Yes Adequeate Hydration: Yes Anesthesia Complications: No Block Receding Appropriately: Yes Patient on Ventilator: No
[2022-01-25] MEDS: IBUPROFEN 800 MG TAB PO PRN ×2 (08:58→16:34)
[2022-01-25] MEDS: SIMETHICONE 80 MG CHEW TAB PO PRN ×2 (09:07→16:34)
--- NOTE | 2022-01-25 10:47 | Progress Note ---
Assessment and Plan A: POD #1 Severe Anemia Fatigue P: Follow Routine PostOp Orders Continue FeSO4 as ordered Consulted Dr. Terrazas due to Anemia and Fatigue Recommends STAT repeat CBC Subjective - Subjective Date of service: 01/25/22 Patient reports: appetite normal, voiding normally, pain well controlled, ambulating normally, other (Patient feels very tired and sleepy; states she would accept blood products) [place]: doing well Objective - Vital Signs Latest vital signs: Vital Signs Temp Pulse Resp BP Pulse Ox Pulse Ox 01/25/22 08:52 98.9 F 69 19 105/52 99 01/25/22 03:55 98 01/25/22 02:59 98 01/25/22 02:57 18 01/25/22 00:20 97.8 F 59 L 20 102/58 100 01/25/22 00:10 99 01/24/22 23:12 98 01/24/22 21:15 98 01/24/22 20:15 99 01/24/22 20:06 97.9 F 62 20 94/62 100 01/24/22 15:22 97.9 F 69 20 96/53 97 01/24/22 12:00 98.8 F 75 20 104/62 98 Intake and Output 01/24/22 01/25/22 01/25/22 22:59 06:59 14:59 Intake Total 220 240 Output Total 400 Balance -180 240 Intake: IV 100 ceFAZolin 2 GM In NaCl 0. 100 9% 100 ml @ 200 mls/hr IV Q8H [facility] Rx#:[id number] Oral 240 Intake, Free Water 120 Output: Urine 400 Void 400 Other: Total, Intake Amount 240 Total, Output Amount 400 Voiding Method Toilet # Voids Void 1 1 - Exam Breasts: Present: normal Cardiovascular: Present: Regular rate Lungs: Present: Clear to auscultation, Normal air movement Abdomen: Present: normal appearance, soft, normal bowel sounds Uterus: Present: normal, firm, fundal height below umbilicus Extremities: Present: normal Incision: Present: dry, dressed - Labs Labs: Abnormal lab results 01/25/22 Range/Units 04:42 RBC 3.42 L (3.65-5.03) M/mm3 Hgb 7.7 L (10.1-14.3) gm/dl Hct 24.4 L D (30.3-42.9) % MCV 71 L (79-97) fl MCH 23 L (28-32) pg RDW 16.5 H (13.2-15.2) %
[2022-01-25] MEDS: FERROUS SULFATE 325 MG TAB PO SCH (10:56)
[2022-01-25] MEDS: PRENATAL VIT27-FE FUMARATE-FOLIC ACID VIT TAB PO SCH (10:57)
[2022-01-25 11:37] LABS: Basophils % (Auto) 0.2 % (0.0-1.8); Eosinophils # (Auto) 0.1 K/mm3 (0.0-0.4); Eosinophils % (Auto) 1.3 % (0.0-4.3); Hematocrit 26.8 % (30.3-42.9); Hemoglobin 8.6 gm/dl (10.1-14.3); Lymphocytes # (Auto) 2.2 K/mm3 (1.2-5.4); Lymphocytes % (Auto) 24.8 % (13.4-35.0); Mean Corpuscular HGB Conc 32 % (30-34); Mean Corpuscular Volume 72 fl (79-97); Monocytes # (Auto) 0.7 K/mm3 (0.0-0.8); Monocytes % (Auto) 7.3 % (0.0-7.3); Platelet Count 249 K/mm3 (140-440); Red Blood Count 3.73 M/mm3 (3.65-5.03); Red Cell Distribution Width 16.7 % (13.2-15.2)
[2022-01-26] MEDS: IBUPROFEN 800 MG TAB PO PRN ×2 (08:54→21:01)
--- NOTE | 2022-01-26 09:50 | Progress Note ---
Assessment and Plan POD#2 C/S with placenta previa 1. will repeat CBC and check CMP and also do EKG stat 2. will monitor closely, unclear the cause of her symptoms 3. may have tylenol for headache Subjective Date of service: 01/26/22 Principal diagnosis: POD#2 C/S with previa Interval history: pt c/o feeling tired, chest pain and has headache. partner to bedside tra nslates. Vag bleed like a period. Voiding in the bathroom without difficulty. Objective - Constitutional Vitals: Vital Signs - 12hr 01/26/22 01/26/22 01/26/22 00:19 07:50 08:00 Temperature 98.3 F 98.5 F Pulse Rate 68 76 Respiratory 20 16 Rate Blood Pressure 101/54 102/65 O2 Sat by Pulse 98 99 Oximetry O2 Sat by Pulse 98 Oximetry [ Anterior Bilateral Throughout] General appearance: Present: mild distress - Neck Neck: normal ROM - Respiratory Respiratory effort: normal - Breasts Breasts: deferred - Cardiovascular Rhythm: regular Extremities: No edema - Gastrointestinal General gastrointestinal: Present: soft, non-tender, other (Incision C/D/I with steristrips) - Genitourinary Female genitourinary: other (fundus firm non-tender and 2cm below umbilicus, lochia moderate) - Integumentary Integumentary: warm, dry - Neurologic Neurologic: moves all extremities - Psychiatric Psychiatric: cooperative - Labs CBC & Chem 7: 01/25/22 10:53 Labs: Abnormal lab results 01/23/22 01/25/22 Range/Units 15:23 10:53 Hgb 8.6 L (10.1-14.3) gm/dl Hct 26.8 L (30.3-42.9) % MCV 72 L (79-97) fl MCH 23 L (28-32) pg RDW 16.7 H (13.2-15.2) % Crossmatch See Detail Medications & Allergies - Medications Allergies/Adverse Reactions: Allergies nitrofurantoin [From Macrobid] Allergy (Verified 01/23/22 19:18) Itching Home Medications: Home Medications Medication Instructions Recorded Confirmed Last Taken Type Vit-Fe Fumar-FA [ 1 tab PO DAILY 04/10/19 01/24/22 01/23/22 History Vitamin] Ibuprofen [Motrin] 800 mg PO Q8HR PRN 21 Days #30 01/24/22 Unknown Rx tablet oxyCODONE /ACETAMINOPHEN [Percocet 1 tab PO Q4HR PRN 21 Days #30 tab 01/24/22 Unknown Rx 5/325] Active Medications: Generic Name Dose Route Start Last Admin Trade Name Freq PRN Reason Stop Dose Admin Carboprost Tromethamine 250 mcg 01/23/22 12:36 Carboprost Tromethamine 250 Mcg/1 Ml Inj IM ONCE PRN Uterine Bleeding Ferrous Sulfate 325 mg 01/24/22 10:00 01/25/22 10:56 Ferrous Sulfate 325 Mg Tab PO 325 mg QDAY JEAN Administration Oxytocin/Sodium Chloride 30 units in 500 mls @ 2 mls/hr 01/23/22 13:00 01/23/22 23:39 Pitocin/Ns 30 Unit/500ml IV 40 ml/hr TITR JEAN 40 mls/hr Administration Protocol Lactated Ringer's 1,000 mls @ 125 mls/hr 01/23/22 12:45 01/24/22 06:43 Lactated Ringers IV 125 mls/hr DIRECT JEAN Administration Fentanyl/Bupivacaine/Sodium Chlor 200 mcg in 100 mls @ 8 mls/hr 01/24/22 04:00 Fentanyl-Bupiv 2 Mcg/Ml-0.125% EPIDURAL TITRATE JEAN Protocol Ibuprofen 600 mg 01/24/22 04:29 Ibuprofen 600 Mg Tab PO Q6H PRN Pain, Mild (1-3) Ibuprofen 800 mg 01/24/22 04:29 01/26/22 08:54 Ibuprofen 800 Mg Tab PO 800 mg Q6H PRN Administration Pain, Moderate (4-6) Loperamide HCl 2 mg 01/23/22 12:36 Loperamide 2 Mg Cap PO ONCE PRN give with Hemabate Magnesium Hydroxide 30 ml 01/24/22 04:29 Magnesium Hydroxide (Mom) Oral Liqd Udc PO QHS PRN Constip Unrelieved By Senna Methylergonovine Maleate 0.2 mg 01/23/22 12:36 Methylergonovine Maleate 0.2 Mg/Ml Vial IM ONCE PRN Uterine Bleeding Mineral Oil 30 ml 01/23/22 12:36 Mineral Oil 30 Ml Oral Liqd PO QHS PRN Constipation Morphine Sulfate 4 mg 01/24/22 04:29 01/24/22 13:45 Morphine 4 Mg/1 Ml Inj IV 4 mg Q4H PRN Administration Pain , Severe (7-10) Multi-Ingredient Ointment 1 applic 01/24/22 04:29 01/25/22 10:57 Lanolin/Zinc/Dimethicone (Lansinoh) 7 Gm TP 1 applic PRN PRN Administration dryness/cracking Multivitamins/Iron/Calcium 1 each 01/24/22 10:00 01/25/22 10:57 [id number] Fumarate-Folic Acid Vit Tab PO 1 each QDAY JEAN Administration Naloxone HCl 0.1 mg 01/24/22 04:29 Naloxone 0.4 Mg/1 Ml Inj IV Q2MIN PRN Res Rate </= 8 or 02 SAT < 92% Ondansetron HCl 4 mg 01/24/22 04:29 Ondansetron 4 Mg/2 Ml Inj IV Q8H PRN Nausea And Vomiting Oxycodone/Acetaminophen 2 tab 01/24/22 04:29 01/25/22 18:36 Oxycodone /Acetaminophen 5-325mg Tab PO 2 tab Q6H PRN Administration Pain, Moderate (4-6) Oxytocin 10 unit 01/23/22 12:36 Oxytocin 10 Unit/1 Ml Inj IM ONCE PRN Uterine Bleeding Promethazine HCl 25 mg 01/24/22 03:03 Promethazine 25 Mg Tab PO Q6H PRN Nausea And Vomiting Promethazine HCl 25 mg 01/24/22 03:03 Promethazine 25 Mg Rect Supp VA Q6H PRN Nausea And Vomiting Senna 17.2 mg 01/24/22 04:29 01/25/22 10:57 Sennosides 8.6 Mg Tab PO 17.2 mg QHS PRN Administration Constipation Simethicone 80 mg 01/24/22 04:29 01/25/22 16:34 Simethicone 80 Mg Chew Tab PO 80 mg Q6H PRN Administration Gas pain Sodium Chloride 10 ml 01/24/22 04:29 Sodium Chloride 0.9% 10 Ml Flush Syringe IV PRN PRN LINE FLUSH Witch Rosey/Glycerin 1 each 01/24/22 04:29 Witch Rosey/ Glycerin Pad TP PRN PRN Hemorrhoids/cleansing/soothing
[2022-01-26] MEDS: oxyCODONE /ACETAMINOPHEN 5-325MG TAB PO PRN (11:36)
[2022-01-26] MEDS: FERROUS SULFATE 325 MG TAB PO SCH (11:41)
[2022-01-26] MEDS: PRENATAL VIT27-FE FUMARATE-FOLIC ACID VIT TAB PO SCH (11:42)
[2022-01-26 13:21] LABS: Basophils % (Auto) 0.5 % (0.0-1.8); Eosinophils # (Auto) 0.2 K/mm3 (0.0-0.4); Eosinophils % (Auto) 2.6 % (0.0-4.3); Hematocrit 26.3 % (30.3-42.9); Hemoglobin 8.2 gm/dl (10.1-14.3); Lymphocytes % (Auto) 24.1 % (13.4-35.0); Mean Corpuscular HGB Conc 31 % (30-34); Mean Corpuscular Volume 72 fl (79-97); Monocytes # (Auto) 0.4 K/mm3 (0.0-0.8); Platelet Count 281 K/mm3 (140-440); Red Blood Count 3.64 M/mm3 (3.65-5.03); Red Cell Distribution Width 16.6 % (13.2-15.2)
[2022-01-26 13:38] LABS: Alanine Aminotransferase 7 units/L (7-56); Albumin 2.7 g/dL (3.9-5); Blood Urea Nitrogen 7 mg/dL (7-17); Calcium 8.3 mg/dL (8.4-10.2); Hemolysis Index 1
[2022-01-26 13:48] LABS: BUN/Creatinine Ratio 14
[2022-01-26] MEDS: SIMETHICONE 80 MG CHEW TAB PO PRN (18:40)
[2022-01-27] MEDS: IBUPROFEN 800 MG TAB PO PRN ×2 (08:32→14:15)
[2022-01-27] MEDS: FERROUS SULFATE 325 MG TAB PO SCH (10:10)
[2022-01-27] MEDS: PRENATAL VIT27-FE FUMARATE-FOLIC ACID VIT TAB PO SCH (10:10)
--- NOTE | 2022-01-27 10:50 | Progress Note ---
Assessment and Plan POD#3 C/S, now with headache, more likely spinal 1. Await anesthesia re-evaluation 2. Will consult hospitalist if headache persistent and not anesthesia related 3. routine post op care 4. Emotional support given Subjective Date of service: 01/27/22 Principal diagnosis: POD#3 C/S with previa Interval history: pt c/o again of occipital headache and this time nurse has not given her the percocet as yet. Anesthesia dept called and will re-evaluate pt. Pt states her headache is worse when sitting upwards and started after she had the surgery. Pt also c/o backpain, most mid to upper back. pt has passed flatus, tolerates diet, denies pelvic pain and vag bleed less than a period. Objective - Constitutional Vitals: Vital Signs - 12hr 01/27/22 01/27/22 01/27/22 00:00 07:40 08:19 Temperature 98.7 F 98.2 F Pulse Rate 74 75 Respiratory 16 20 Rate Blood Pressure 119/78 117/71 [Left] O2 Sat by Pulse 98 Oximetry O2 Sat by Pulse 98 Oximetry [ Anterior Bilateral Throughout] General appearance: Present: no acute distress - Neck Neck: normal ROM - Respiratory Respiratory effort: normal - Breasts Breasts: deferred - Cardiovascular Rhythm: regular Extremities: No edema - Genitourinary Female genitourinary: other (incision with steristrips C/D/I) - Integumentary Integumentary: warm, dry - Neurologic Neurologic: moves all extremities - Psychiatric Psychiatric: cooperative - Labs CBC & Chem 7: 01/26/22 12:50 01/26/22 12:50 Labs: Abnormal lab results 01/26/22 01/26/22 Range/Units 12:50 12:50 RBC 3.64 L (3.65-5.03) M/mm3 Hgb 8.2 L (10.1-14.3) gm/dl Hct 26.3 L (30.3-42.9) % MCV 72 L (79-97) fl MCH 23 L (28-32) pg RDW 16.6 H (13.2-15.2) % Sodium 136 L (137-145) mmol/L Creatinine 0.5 L (0.6-1.2) mg/dL Calcium 8.3 L (8.4-10.2) mg/dL Alkaline Phosphatase 163 H (35-129) units/L Total Protein 5.9 L (6.3-8.2) g/dL Albumin 2.7 L (3.9-5) g/dL Medications & Allergies - Medications Allergies/Adverse Reactions: Allergies nitrofurantoin [From Macrobid] Allergy (Verified 01/23/22 19:18) Itching Home Medications: Home Medications Medication Instructions Recorded Confirmed Last Taken Type Vit-Fe Fumar-FA [ 1 tab PO DAILY 04/10/19 01/24/22 01/23/22 History Vitamin] Ibuprofen [Motrin] 800 mg PO Q8HR PRN 21 Days #30 01/24/22 Unknown Rx tablet oxyCODONE /ACETAMINOPHEN [Percocet 1 tab PO Q4HR PRN 21 Days #30 tab 01/24/22 Unknown Rx 5/325] Active Medications: Generic Name Dose Route Start Last Admin Trade Name Freq PRN Reason Stop Dose Admin Carboprost Tromethamine 250 mcg 01/23/22 12:36 Carboprost Tromethamine 250 Mcg/1 Ml Inj IM ONCE PRN Uterine Bleeding Ferrous Sulfate 325 mg 01/24/22 10:00 01/27/22 10:10 Ferrous Sulfate 325 Mg Tab PO 325 mg QDAY JEAN Administration Oxytocin/Sodium Chloride 30 units in 500 mls @ 2 mls/hr 01/23/22 13:00 01/23/22 23:39 Pitocin/Ns 30 Unit/500ml IV 40 ml/hr TITR JEAN 40 mls/hr Administration Protocol Lactated Ringer's 1,000 mls @ 125 mls/hr 01/23/22 12:45 01/24/22 06:43 Lactated Ringers IV 125 mls/hr DIRECT JEAN Administration Fentanyl/Bupivacaine/Sodium Chlor 200 mcg in 100 mls @ 8 mls/hr 01/24/22 04:00 Fentanyl-Bupiv 2 Mcg/Ml-0.125% EPIDURAL TITRATE JEAN Protocol Ibuprofen 600 mg 01/24/22 04:29 Ibuprofen 600 Mg Tab PO Q6H PRN Pain, Mild (1-3) Ibuprofen 800 mg 01/24/22 04:29 01/27/22 08:32 Ibuprofen 800 Mg Tab PO 800 mg Q6H PRN Administration Pain, Moderate (4-6) Loperamide HCl 2 mg 07/30/22 12:36 Loperamide 2 Mg Cap PO ONCE PRN give with Hemabate Magnesium Hydroxide 30 ml 01/24/22 04:29 Magnesium Hydroxide (Mom) Oral Liqd Udc PO QHS PRN Constip Unrelieved By Senna Methylergonovine Maleate 0.2 mg 01/23/22 12:36 Methylergonovine Maleate 0.2 Mg/Ml Vial IM ONCE PRN Uterine Bleeding Mineral Oil 30 ml 01/23/22 12:36 Mineral Oil 30 Ml Oral Liqd PO QHS PRN Constipation Morphine Sulfate 4 mg 01/24/22 04:29 01/24/22 13:45 Morphine 4 Mg/1 Ml Inj IV 4 mg Q4H PRN Administration Pain , Severe (7-10) Multi-Ingredient Ointment 1 applic 01/24/22 04:29 01/25/22 10:57 Lanolin/Zinc/Dimethicone (Lansinoh) 7 Gm TP 1 applic PRN PRN Administration dryness/cracking Multivitamins/Iron/Calcium 1 each 01/24/22 10:00 01/27/22 10:10 [id number] Fumarate-Folic Acid Vit Tab PO 1 each QDAY JEAN Administration Naloxone HCl 0.1 mg 01/24/22 04:29 Naloxone 0.4 Mg/1 Ml Inj IV Q2MIN PRN Res Rate </= 8 or 02 SAT < 92% Ondansetron HCl 4 mg 01/24/22 04:29 Ondansetron 4 Mg/2 Ml Inj IV Q8H PRN Nausea And Vomiting Oxycodone/Acetaminophen 2 tab 01/24/22 04:29 01/26/22 11:36 Oxycodone /Acetaminophen 5-325mg Tab PO 2 tab Q6H PRN Administration Pain, Moderate (4-6) Oxytocin 10 unit 01/23/22 12:36 Oxytocin 10 Unit/1 Ml Inj IM ONCE PRN Uterine Bleeding Promethazine HCl 25 mg 01/24/22 03:03 Promethazine 25 Mg Tab PO Q6H PRN Nausea And Vomiting Promethazine HCl 25 mg 01/24/22 03:03 Promethazine 25 Mg Rect Supp ME Q6H PRN Nausea And Vomiting Senna 17.2 mg 01/24/22 04:29 01/25/22 10:57 Sennosides 8.6 Mg Tab PO 17.2 mg QHS PRN Administration Constipation Simethicone 80 mg 01/24/22 04:29 01/26/22 18:40 Simethicone 80 Mg Chew Tab PO 80 mg Q6H PRN Administration Gas pain Sodium Chloride 10 ml 01/24/22 04:29 Sodium Chloride 0.9% 10 Ml Flush Syringe IV PRN PRN LINE FLUSH Witch Rosey/Glycerin 1 each 01/24/22 04:29 Witch Rosey/ Glycerin Pad TP PRN PRN Hemorrhoids/cleansing/soothing
--- NOTE | 2022-01-27 12:29 | Progress Note ---
Subjective Date of service: 01/24/22 Principal diagnosis: POD#3 C/S with previa Interval history: Spoke with PT through an interpretation line concerning complaints of a headache. Pt stated that the headache does get better when she lays flat and after spoeaking with her it has the clinical presentation of a PDP Headache. I explained that there are usually two routes of treatment and they involve a procedure called a blood patch and conservative treatment with medicine. I explained the blood patch procedure and advised that it comes with a risk of another headache as well as the small potential for infection and nerve damage similar to the original epidural. The PT stated that she wanted to try the conservative route first and see if it resolves itself. I advised her that if it doesn't resolve itself or get worse to the point that she is unable to perform ADL for herself or her baby then to go to the nearest emergency room for treatment. Pt agreed and had no further questions or concerns. Objective - Constitutional Vitals: Vital Signs - 12hr 01/27/22 01/27/22 07:40 08:19 Temperature 98.2 F Pulse Rate 75 Respiratory 20 Rate Blood Pressure 117/71 [Left] O2 Sat by Pulse 98 Oximetry O2 Sat by Pulse 98 Oximetry [ Anterior Bilateral Throughout] - Labs CBC & Chem 7: 01/26/22 12:50 01/26/22 12:50 Labs: Abnormal lab results 01/26/22 01/26/22 Range/Units 12:50 12:50 RBC 3.64 L (3.65-5.03) M/mm3 Hgb 8.2 L (10.1-14.3) gm/dl Hct 26.3 L (30.3-42.9) % MCV 72 L (79-97) fl MCH 23 L (28-32) pg RDW 16.6 H (13.2-15.2) % Sodium 136 L (137-145) mmol/L Creatinine 0.5 L (0.6-1.2) mg/dL Calcium 8.3 L (8.4-10.2) mg/dL Alkaline Phosphatase 163 H (35-129) units/L Total Protein 5.9 L (6.3-8.2) g/dL Albumin 2.7 L (3.9-5) g/dL
--- NOTE | 2022-01-27 14:16 | Discharge Summary ---
Providers - Providers Date of Admission: 01/23/22 12:49 Date of discharge: 01/27/22 Attending physician: RADHA COLLAZO Primary care physician: SURGICAL SERVICES MANAGER Hospitalization Reason for admission: IUP at term (complete previa) Delivery: Procedure: primary low transverse Incision: normal complications: other (spinal headache for which pt refused blood patch from Anesthesiologist) Discharge diagnosis: IUP at term delivered (with complete previa) [place] baby: male Hospital course: term uncomplicated c/section with complete previa discovered via U/S here at [facility] and partially posteriorly from uterine wall. Pt did not require any blood transfusion and passed flatus as expected. However, pt c/o headache on post op day #2 and #3 that was worse when sitting upwards. Anesthesia consu lt done the first time was normal because pt received percocet prior and no longer had headache. Today findings suggestive of spinal headache and pt declined blood patch and will take conservative measures of oral hydration, caffienated beverage and percocet prn. Pt to return to ER if headache is persistent and conservative measures fail. Condition at discharge: Good Disposition: 01 HOME / SELF CARE / HOMELESS - Discharge Diagnoses (1) delivery delivered Status: Acute (2) Placenta previa affecting delivery Status: Acute (3) Term , repeat Status: Acute Plan - Discharge Medications Prescriptions: Ibuprofen [Motrin] 800 mg PO Q8HR PRN 21 Days #30 tablet PRN Reason: Pain, Moderate (4-6) oxyCODONE /ACETAMINOPHEN [Percocet 5/325] 1 tab PO Q4HR PRN 21 Days #30 tab PRN Reason: Pain , Severe (7-10) - Provider Discharge Summary Additional instructions: [] Smoking cessation referral if applicable(refer to patient education folder for contact #) [] Refer to [facility] Booklet Call your doctor immediately for: * Fever > 100.5 * Heavy vaginal bleeding ( >1 pad per hour) * Severe persistent headache * Shortness of breath * Reddened, hot, painful area to leg or breast * Drainage or odor from incision. * Keep incision clean and dry at all times and follow doctor's instructions regarding bathing/showering - Follow up plan Follow up: PRIMARY CARE, [Primary Care Provider] - 7 Days
[2022-01-27 17:29] VITALS: BP 113/65
--- NOTE | 2022-01-28 18:17 | Electrocardiograph Report ---
[facility] [place] Test Date: 2022-01-26 Test Time: 17:06:26 Pat Name: RASHAUN ROY Department: Room: [facility] 1 Gender: F Lav Crewman: MARYAN : 1989-06-25 Requested By: RADHA COLLAZO Order Number: [id number] Reading MD: Edilberto Casillas Measurements Intervals [place] Rate: 65 P: 50 [place]: 167 QRS: 45 QRSD: 87 T: 37 QT: 392 QTc: 408 Interpretive Statements Sinus rhythm No previous ECG available for comparison Electronically Signed On 01-28-2022 18:17:17 EDT by Edilberto Casillas
== END 2022-01-27 18:05 | disposition home or self-care (01) | DRG 788 ==
LOC: TRG 10:40 → APU 10:40 → TRG 12:36 → LD 12:49 → OB 01-24 04:28
PROVIDERS: ADMIT Obstetrics & Gynecology; ATTEND Obstetrics & Gynecology
PROC: 10D00Z1 Extraction of Products of Conception, Low, Open Approach (ICD-10-PCS; principal; 2022-01-24)
PROC: 3E0T3BZ Introduction of Anesthetic Agent into Peripheral Nerves and Plexi, Percutaneous Approach (ICD-10-PCS; 2022-01-24)
DX: O44.13 Complete placenta previa with hemorrhage, third trimester (principal); Z3A.37 37 weeks gestation of pregnancy; Z37.0 Single live birth; Z20.822 Contact with and (suspected) exposure to COVID-19; Z88.8 Allergy status to other drugs, medicaments and biological substances; O90.81 Anemia of the puerperium
CPT/HCPCS: 36415; 76815; 80053; 85025; 85027; 86592; 86850; 86900; 86901; 86920; 88307; 93005; G0378; J3490; J0690; J2270; J2370; J2405; J2590; J2765; J3010; J7030; J7120; U0003